=== PATIENT | male | born 1990 | race Hispanic/Latino ===

== ENCOUNTER 2019-09-28 10:00 | Emergency (ER) | payer SELFPAY ==
[~2019-09-28] VITALS: Ht 185.4 cm; Wt 149.7 kg
--- NOTE | 2019-09-28 10:19 | Emergency Department Note ---
History of Present Illnes History of Present Illness Chief Complaint: constipation History of Present Illness This is a 28 year old morbidly obese male, with no significant past medical hi story, who presents for evaluation of constipation for the past month. Patient states that he has had intermittent bouts of constipation for the past 2 years. Patient states that he has taken some [id number]-txabwns laxatives over the past 2 days, and drank some sort of liquid laxative, though he cannot recall the name. Patient states that he has never been to the ER before for this problem, and he has not been evaluated by a physician for this either. Patient states that he did pass a very large caliber stool yesterday, but it was only partially passed. He states that it broke off, and he was unable to completely evacuate his bowels. He states it was painful to pass, and he denies any blood in the stool or upon wiping. He is having some generalized abdominal discomfort that is crampy in nature. He denies any nausea or vomiting. When asked why he did not get worried about not having a bowel movement until just a few days ago, he states that "he just works, and does what he has to do, and he just doesn't think about it." Historian: Patient Arrival Mode: Car Acid Leveler Required: No Onset (how long ago): month(s) (1) Location: diffuse abdomen Quality: crampy Radiation: Reports non-radiation Severity: moderate Onset quality: gradual Duration (how long): month(s) (1) Timing of current episode: constant Progression: worsening Chronicity: new Context: Denies recent illness, Denies trauma/injury, Denies non-compliance w/ medications Relieving factors: none Exacerbating factors: none Associated symptoms: Reports denies other symptoms; Denies chest pain, Denies cough, Denies fever/chills, Denies headaches, Denies malaise, Denies nausea/vomiting, Denies shortness of breath, Denies weakness Treatments prior to arrival: none Risk factors: poor diet Past Medical/Family History Physician Review I have reviewed the patient's past medical and family history. Any updates have been documented here. Past Medical History Recent Fever: No Clinical Suspicion of Infectio: No New/Unexplained Change in Ment: No Past Medical History: None Past Surgical History: None Social History Smoking Cessation: Current every day smoker Counseling Performed: Yes Alcohol Use: Occasional Any Illegal Drug Use: No TB Exposure/Symptoms: No Physically hurt or threatened: No Family History Family history of heart diseas: No Other Any Pre-Existing Lines (PICC,: No Is patient up to date on immun: No Review of Systems Review of Systems Constitutional: Reports no symptoms; Denies chills, Denies fever, Denies malaise, Denies weakness EENTM: Reports no symptoms Cardiovascular: Denies chest pain, Denies palpitations Respiratory: Denies chest congestion, Denies cough, Denies dyspnea, Denies dyspnea on exertion Gastrointestinal: Reports abdominal pain, Reports constipation; Denies nausea, Denies vomiting Genitourinary: Reports no symptoms Musculoskeletal: Denies back pain, Denies joint pain, Denies muscle pain Integumentary: Denies change in color, Denies rash Neurological: Denies headache, Denies weakness Psychological: Reports no symptoms Endocrine: Reports no symptoms Hematological/Lymphatic: Reports no symptoms Review of other systems: All other systems negative Physical Exam Related Data Vital signs reviewed: Yes Physical Exam CONSTITUTIONAL Constitutional: Present well-developed, Present well-nourished, Present morbidly obese, Present ill appearing (uncomfortable, standing is more comfortable;) HENT HENT: Present normocephalic, Present atraumatic, Present oropharynx clear/moist, Present nose normal; Absent nasal congestion, Absent rhinorrhea HENT L/R: Present left ext ear normal, Present right ext ear normal EYES Eyes: Reports PERRL, Reports conjunctivae normal NECK Neck: Present ROM normal PULMONARY Pulmonary: Present effort normal, Present breath sounds normal CARDIOVASCULAR Cardiovascular: Present regular rhythm, Present heart sounds normal, Present capillary refill normal, Present normal rate GASTROINTESTINAL Abdominal: Present soft, Present bowel sounds normal, Present tender (mild, diffuse abdominal ttp); Absent guarding, Absent mass, Absent rebound, Absent left CVA tenderness, Absent right CVA tenderness GENITOURINARY Genitourinary: Present exam deferred SKIN Skin: Present warm, Present dry; Absent rash MUSCULOSKELETAL Musculoskeletal: Present ROM normal; Absent tenderness, Absent swelling NEUROLOGICAL Neurological: Present alert, Present oriented x 3, Present no gross motor or sensory deficits PSYCHOLOGICAL Psychological: Present mood/affect normal, Present judgement normal Results Imaging Imaging results reviewed: Yes Impressions [address] [address] Patient Name: ROGERS TEIXEIRA MR #: [id number] : 1990 Age/Sex: 28/M Req #: [id number] Adm Physician: Ordered by: ANEUDY GRIFFITH MD Report #: [id number] Location: [facility] Room/Bed: Procedure: [id number] HOPD/ABDOMEN COMPLETE - HOPD Exam Date: 09/28/19 Exam Time: 1103 REPORT STATUS: Signed EXAMINATION: ABDOMEN COMPLETE - HOPD INDICATION: Shortness of breath, abdominal pain, constipation COMPARISON: None FINDINGS: LINES/TUBES:None LUNGS:The lungs are well-inflated. No focal consolidation or pulmonary edema. PLEURA:No pleural effusion or pneumothorax. MEDIASTINUM:The cardiomediastinal silhouette appears normal in size and shape. BONES/SOFT TISSUES:No acute osseous injury. ABDOMEN:Nonobstructive bowel gas pattern. No free air. Large stool burden throughout the colon. IMPRESSION: No focal pneumonia or pulmonary edema. Large stool burden throughout the colon, consistent with constipation. Signed by: Shawna Wiggins MD on 09/28/2019 11:10 AM Dictated By: SHAWNA WIGGINS MD 111 Transcribed By: CHAUNCEY on 09/28/19 111 COPY TO: ANEUDY GRIFFITH MD~ Assessment & Plan Medical Decision Making MDM - Recommend that you purchase 2 bottles of Magnesium Citrate at the pharmacy today. When you arrive home, drink one bottle within a 30 minute time period, and follow this immediately with 16 ounces of water. You should begin to have a bowel movement within the next several hours. If you have still not had a bowel movement within 8 hours, you may repeat a second bottle of Magnesium Citrate. Follow this with 16 ounces of water, as before. - Increase water and fiber intake daily. Increase fruits and vegetables in your diet, and avoid fast food, fried food, and fatty foods. - Take the Lactulose as directed, to help produce a soft bowel movement every 2-3 days. You may increase the dose if needed, or decrease as needed, to produce a soft bowel movement every 2-3 days. - If your symptoms persist, you will need to be seen by a specialist, Membership Director. Assessment & Plan Final Impression: (1) Constipation (2) Abdominal pain Depart Disposition: HOME, SELF-correction Meds Active Scripts Lactulose (LACTULOSE) 20 Gm/30 Ml Solution, 30 ML PO BID for constipation, #473 ML 0 Refills Prov:ANEUDY GRIFFITH MD 09/28/19 ANEUDY GRIFFITH MD Sep 28, 2019 10:19
--- NOTE | 2019-09-28 11:13 | Diagnostic Imaging Report ---
EXAMINATION: ABDOMEN COMPLETE - HOPD INDICATION: Shortness of breath, abdominal pain, constipation COMPARISON: None FINDINGS: LINES/TUBES:None LUNGS:The lungs are well-inflated. No focal consolidation or pulmonary edema. PLEURA:No pleural effusion or pneumothorax. MEDIASTINUM:The cardiomediastinal silhouette appears normal in size and shape. BONES/SOFT TISSUES:No acute osseous injury. ABDOMEN:Nonobstructive bowel gas pattern. No free air. Large stool burden throughout the colon. IMPRESSION: No focal pneumonia or pulmonary edema. Large stool burden throughout the colon, consistent with constipation. Signed by: Blaze Wiggins MD on 09/28/2019 11:10 AM
--- NOTE | 2019-09-28 11:26 | NUR ---
PT DECLINED TO HAVE NURSE ASSIST IN DISIMPACTION, STATED HE HAS DONE IT BEFORE AND WILL DO IT WHEN HE GETS HOME.
--- OUTSIDE RECORDS SUMMARY | 2019-09-28 11:26 | XMS REPORT | Continuity of Care Document ---
Author Author [facility] Organization [facility] Address [address] [place] [address] [place] [phone] Phone Unavailable Care Team Providers Care Recreation Instructor Name Role Phone Marli GRIFFITH Unavailable Problems This patient has no known problems. Allergies, Adverse Reactions, Alerts This patient has no known allergies or adverse reactions. Medications This patient has no known medications. Procedures This patient has no known procedures. Results Test Description Test Time Test Comments Results Result Comments Source ABDOMEN COMPLETE - HOPD 2019-09-28 11:08:00 [place] [address] Patient Name: ROGERS TEIXEIRA MR #: [id number] : 1990 Age/Sex: 28/M Req #: [id number] Adm Physician: Ordered by: ANEUDY GRIFFITH MD Report #: [id number] Location: [facility] Room/Bed: Procedure: [id number] HOPD/ABDOMEN COMPLETE - HOPD Exam Date: 09/28/19 Exam Time: 1103 REPORT STATUS: Signed EXAMINATION: ABDOMEN COMPLETE - HOPD INDICATION: Shortness of breath, abdominal pain, constipation COMPARISON: None FINDINGS: LINES/TUBES:None LUNGS:The lungs are well-inflated. No focal consolidation or pulmonary edema. PLEURA:No pleural effusion or pneumothorax. MEDIASTINUM:The cardiomediastinal silhouette appears normal in size and shape. BONES/SOFT TISSUES:No acute osseous injury. ABDOMEN:Nonobstructive bowel gas pattern. No free air. Large stool burden throughout the colon. IMPRESSION: No focal pneumonia or pulmonary edema. Large stool burden throughout the colon, consistent with constipation. Signed by: Shawna Alvarado MD on 09/28/2019 11:10 AM Dictated By: SHAWNA ALVARADO MD [id number] Transcribed By: CHAUNCEY on 09/28/19 1110 COPY TO: ANEUDY GRIFFITH MD
[2019-09-28] MEDS ORDERED: LACTULOSE20 GM/30 M PO (11:33)
== END 2019-09-28 11:48 | disposition home or self-care (01) ==
LOC: FSED 10:00
DX: R10.84 Generalized abdominal pain (principal); R06.02 Shortness of breath; K59.00 Constipation, unspecified; F17.210 Nicotine dependence, cigarettes, uncomplicated
CPT/HCPCS: 74022; 99283